=== PATIENT | female | born 1945 | race Caucasian/White ===

== ENCOUNTER 2018-12-21 08:47 | Inpatient (IN) | payer MEDICARE, OTHER ==
[~2018-12-21] VITALS: Ht 172.7 cm; Wt 103.1 kg
[2018-12-21] VITALS (8 sets, daily range): BP systolic 129–162; BP diastolic 48–80
--- NOTE | ~2018-12-21 | PR ---
[place], [place] PROGRESS NOTE [id number] UNIT #: [id number] ROOM: 522 DOCTOR: OPAL GUAMAN BIRTHDATE: [birth year] DOS: 12/24/2018 PULMONARY PROGRESS NOTE SUBJECTIVE: The patient remains in the hospital, noted comfortable this morning, assessed, using oxygen supplementation via nasal cannula. Denies symptoms of fever or chills. Denies symptoms of coughing or any sputum expectoration. OBJECTIVE: GENERAL: This morning was assessed as the patient is comfortably resting on the bed. VITAL SIGNS: Earlier recorded by the nursing staff; blood pressure 148/54, heart rate 84, respirations 16, normal temperature, pulse oxygen saturation recorded at 94% saturation on 2 liters nasal cannula. HEENT: Shows head was atraumatic. Eyes nonicterus. NECK: Supple. CARDIOVASCULAR: S1, S2 was audible. LUNGS: Noted without any wheezing or crackles at the present time. ABDOMEN: Soft, nontender, bowel sounds present. EXTREMITIES: No acute change. LABORATORY DATA: CMP this morning; BUN 35, creatinine 1.93, PTT was noted therapeutic. CBC: White blood cell count was normal, hemoglobin 8.9, platelets 216,000. IMPRESSION: 1. The patient with acute hypoxic respiratory failure, etiology cannot be clearly determined and diagnosis with pulmonary embolism was considered at this time and remains as a working diagnosis. 2. Bronchospasm noted on admission, currently noted to clear chest. PLAN OF MANAGEMENT: We will need home oxygen. The patient does desaturate on room air. She should continue anticoagulation with Coumadin at this time for 3 months minimally for suspected diagnosis of pulmonary embolism, which cannot be completely excluded unless the patient had a CT of the chest done to exclude the diagnosis appropriately. Novel anticoagulant will not be used due to her history of chronic kidney disease. She was advised to continue her medications for COPD and other medical diagnoses. She lives in [place], is here to visit family members and will be traveling back to [place]. The assessment and management of discharge planning was discussed with Dr. Pancho Smith. Dr. OPAL GUAMAN, [place], [place] PROGRESS NOTE NAME: CAMELIA CASEY UNIT #: [id number] ROOM: 522 DOCTOR: OPAL GUAMAN BIRTHDATE: [birth year] ZOHREH MD POPEYE CM:JAMES [id number] OPAL GUAMAN 12/25/18 0638 interface
--- NOTE | ~2018-12-21 | PR ---
[place], [place] PROGRESS NOTE NAME: CAMELIA CASEY UNIT #: [id number] ROOM: 522 DOCTOR: POPEYE SANCHES MD,ZOHREH BIRTHDATE: [birth year] DOS: 12/23/2018 PULMONARY PROGRESS NOTE SUBJECTIVE: The patient remains in the hospital, noted comfortable this morning assessed, using oxygen supplementation nasal cannula. Denies symptoms of fever or chills. Denies symptoms of coughing or any sputum expectoration. OBJECTIVE: GENERAL: This morning was assessed as the patient is comfortably resting on the bed. VITAL SIGNS: Earlier recorded by the nursing staff, blood pressure 162/76, heart rate 98, respirations 18, normal temperature. Pulse oxygen saturation recorded as 97% on 2 liters nasal cannula. HEENT: Examination shows head was atraumatic. Eyes nonicterus. NECK: Supple. CARDIOVASCULAR: S1, S2 is audible. LUNGS: Noted without any wheezing or crackles at the present time. ABDOMEN: Soft, nontender. Bowel sounds present. EXTREMITIES: No acute change. LABORATORY DATA: CMP this morning, BUN 36, creatinine 2.08. PTT was noted therapeutic. CBC, WBC count normal. Hemoglobin 8.7. IMPRESSION: 1. The patient with acute hypoxic respiratory failure, etiology cannot be clearly determined and diagnosis with pulmonary embolism was considered at this time, remains as a working diagnosis. 2. Bronchospasm, which was noted on admission by Dr. Pancho Smith was assessed on day of admission, starting on the steroids, but they were discontinued yesterday. Currently, noted clear chest. PLAN OF MANAGEMENT: Assessed home oxygen. The patient does desaturate noted still hypoxia. She should be continued anticoagulation at this time for minimal 3-month for suspected diagnosis of pulmonary embolism cannot be completely excluded unless the patient had a CT of the chest done to exclude the diagnosis appropriately. She was advised to continue her medication of COPD and other treatment and plan of management. She does live in [place] visiting family members will be traveling back to [place] may be needing oxygen supplementation if that becomes necessary. The assessment and management of discharge planning was discussed with Dr. Pancho Smith. [place], [place] PROGRESS NOTE NAME: CAMELIA CASEY UNIT #: [id number] ROOM: 522 DOCTOR: ZOHREH SOLO MD BIRTHDATE: [birth year] ZOHREH NYE MD CM:PNTRANS [id number] ZOHREH SANCHES MD 12/23/18 1456 interface
--- NOTE | ~2018-12-21 | PR ---
[place], [place] PROGRESS NOTE NAME: CAMELIA CASEY [facility] #: [id number] UNIT #: [id number] ROOM: 522 DOCTOR: TATIANNA IYER DO BIRTHDATE: [birth year] DOS: 12/23/2018 RENAL PROGRESS NOTE SUBJECTIVE: The patient offers no complaints today, states she is feeling quite well. Denies orthopnea, PND or dyspnea, chest pain, palpitations, presyncope or weakness. States she is voiding well. PHYSICAL EXAMINATION: VITAL SIGNS: Blood pressure is 125/84, pulse is 70, respirations 18, temperature is 97.8 degrees Fahrenheit. GENERAL APPEARANCE: A well-appearing female, awake, alert, oriented x 3, in no apparent distress. HEENT: Conjunctivae are pink and moist. Oral mucosa pink and moist. NECK: There is no JVD appreciated. LUNGS: Clear to auscultation and percussion. HEART: Regular without S3 or rub. Murmur is not appreciated. ABDOMEN: Soft, positive bowel sounds x 4. EXTREMITIES: No clubbing, cyanosis. There is no edema noted. Pulses are +2 bilateral radial. SKIN: Warm and dry. LABORATORY DATA: From today, WBCs are 5.7, hemoglobin of 8.7, hematocrit 29.7, platelets are 198,000. Sodium is 144, potassium 4.9, chloride 113, CO2 of 23, BUN 37, creatinine 2.08, glucose is 97, phosphorus is 2.4, magnesium 1.8, calcium of 8.2, albumin was 2.8, corrected calcium is 9.2, total protein is 6.1, ALT is 11, AST is 15, alkaline phosphatase is 76. ASSESSMENT AND PLAN: 1. Acute kidney injury on chronic kidney disease. Baseline creatinine is unclear, but her renal function has improved since admission, may have been a component of volume depletion contributing to her presentation of presyncope, weakness and acute kidney injury. 2. Hypertension. Blood pressure is under satisfactory control. 3. Anemia. Hemoglobin and hematocrit is diminished from admission with a hemoglobin of 9.7 noted at that time, but changed from yesterday. 4. Presyncope. Evaluation is in progress. Echocardiogram is pending. 5. Hypoxemia, being evaluated by Pulmonary Medicine. The patient did have a negative VQ scan and negative lower extremity Dopplers, echocardiogram is pending. We will see if there is any evidence of RV strain suggestive of a pulmonary embolism but for the moment, ongoing anticoagulation is being recommended by Pulmonary Medicine. RECOMMENDATIONS: No change in current management. Await the pending studies. Follow intake and output as well as renal function and electrolytes closely. Thank you for allowing us to participate in the care of the patient. [place], [place] PROGRESS NOTE NAME: CAMELIA CASEY UNIT #: [id number] ROOM: 522 DOCTOR: TATIANNA IYER DO BIRTHDATE: [birth year] TATIANNA IYER DO CM:JAMES [id number] TATIANNA IYER DO 12/24/18 1240 interface
--- NOTE | ~2018-12-21 | PR ---
[place], [place] PROGRESS NOTE NAME: CAMELIA CASEY UNIT #: [id number] ROOM: 522 DOCTOR: ZOHREH SOLO MD BIRTHDATE: [birth year] DOS: 12/24/2018 PULMONARY PROGRESS NOTE SUBJECTIVE: The patient is independently seen and examined in [id number] encounter, history was confirmed. Physical examination performed. The lab reviewed. Assessment and management of the patient personally made. The note done by the biomedical equipment tech approved as well. The patient was currently noted without any acute symptoms of shortness of breath. Continue oxygen supplementation. She was assessed yesterday with a 6-minute walk test for need of oxygen supplementation. The patient seemed to have hypoxia. The patient is requiring the oxygen supplementation. Case was discussed with Dr. Pancho Smith yesterday. The patient was continued on oxygen supplementation and also continuation of anticoagulation as well. PHYSICAL EXAMINATION: GENERAL: No distress noted. The patient is comfortably resting, using oxygen supplementation at 2 liters nasal cannula. HEENT: Head was atraumatic. Eyes nonicterus. NECK: Supple. CARDIOVASCULAR SYSTEM: S1, S2 audible. LUNGS: Noted clear to auscultation bilaterally. ABDOMEN: Soft, nontender. Bowel sounds present. EXTREMITIES: The patient was noted without any acute edema. MUSCULOSKELETAL: The patient was noted without any acute deformities. IMPRESSION: 1. The patient with a stable respiratory status noted at this time. The PTT was noted therapeutic on this morning of assessment. 2. Acute hypoxic respiratory failure, diagnosis of pulmonary embolism cannot be excluded. 3. History of chronic kidney disease. PLAN OF MANAGEMENT: No changes in plan of management at this time. Continue the patient's current therapy as in progress. Discharge planning by Dr. Pancho Smith. From pulmonary standpoint, the patient could be discharged home on oxygen supplementation. [place], [place] PROGRESS NOTE NAME: CAMELIA CASEY UNIT #: [id number] ROOM: 522 DOCTOR: ZOHREH SOLO MD BIRTHDATE: [birth year] ZOHREH NYE MD CM:JAMES [id number] ZOHREH SANCHES MD 12/25/18 0039 interface
--- NOTE | ~2018-12-21 | CON ---
[place], [place] REPORT OF CONSULTATION NAME: CAMELIA CASEY [facility] #: [id number] UNIT #: [id number] ROOM: 522 DOCTOR: ZOHREH SOLO MD BIRTHDATE: [birth year] DOS: 12/22/2018 PULMONARY CONSULTATION, EVALUATION AND MANAGEMENT CONSULTATION REQUESTED BY: Hospitalist service. REASON FOR CONSULTATION: For the assessment of acute hypoxic respiratory failure. HISTORY OF PRESENT ILLNESS: This is a 73-year-old white female patient who lives in [place]. The patient has been admitted to the hospital. The patient has been noted to fall at home. She has been assessed in the hospital for further care. She has reported oxygen desaturation at home with pulse oxygen saturation recorded about 85% at rest on room air. The patient was noted with history of chronic cough with sputum expectoration. She has been assessed and managed by the merchandise marker as she lives in [place]. The patient stated that she has been reported bilateral pulmonary nodules 4 and 7 mm, one in each lung with the previous, as stated, ultrasound of the chest, but I believe it would be the CT scan of the chest, as the patient was not sure about that. The family members have been present in the room with the patient. The patient does report symptoms of shortness of breath that occurs with exertion, but there was no acute worsening stating. There were no symptoms of chest pain or hemoptysis stated by the patient. She denies symptoms of active wheezing. The patient also stated that she has been diagnosed with obstructive sleep apnea disorder and was treated for that with the CPAP and oxygen with that. REVIEW OF SYSTEMS: CONSTITUTIONAL: Fatigue and tiredness reported. Denies symptoms of fever or chills. EYES: Denies any burning, redness, or tenderness. EARS, NOSE, THROAT SYMPTOMS: Denies sore throat, hoarseness, otalgia, postnasal drainage, or epistaxis. CARDIOVASCULAR: Denies angina pain. No edema in the lower extremities. GASTROINTESTINAL: Reported abdominal pain intermittently. Denies symptoms of hematemesis, melena, or hematochezia was reported. SKIN: Denies abnormal lesions or rashes. CENTRAL NERVOUS SYSTEM: History of recurrent fall reported possibly related to knee problem or others, but again history was not clearly known or stated by the patient. Remaining systems were reviewed. They were noted all negative. PAST MEDICAL HISTORY: 1. History of chronic kidney disease stage 4. 2. History of deep venous thrombosis of the lower extremity. 3. General anxiety disorder. 4. Hyperlipidemia. 5. Essential hypertension. 6. Depression. 7. History of pulmonary nodules. [place], [place] REPORT OF CONSULTATION NAME: CAMELIA CASEY UNIT #: [id number] ROOM: 522 DOCTOR: ZOHREH SOLO MD BIRTHDATE: [birth year] 8. Obstructive sleep apnea disorder. PAST SURGICAL HISTORY: Reported several that includes: 1. Appendectomy. 2. Intervertebral disk disease removal, lower back surgery. 3. Cataract extraction lens implantation bilaterally. 4. Bilateral total knee replacement. 5. Cholecystectomy. 6. Tubal ligation. 7. Dialysis catheter insertion. SOCIAL HISTORY: The patient is currently , has 2 children. She has been noted with tobacco use, started as a teenager 2 or 3 packs of cigarettes per day, which was discontinued in 1988. Denies history of alcohol use or illicit drug use. FAMILY HISTORY: The patient's father at age 52, from complication of myocardial infarction. Mother at 86 years old, from complication related to myocardial infarction as well. HOME MEDICATIONS: Listed as Norvasc, Lipitor, calcitriol, Coreg, fluoxetine, lorazepam and ranitidine. Medications administered currently were noted as, gabapentin, Solu-Medrol 40 mg b.i.d., aspirin, fluoxetine, amlodipine, calcitriol, Coreg, famotidine, Lipitor, heparin intravenous drip, DuoNeb, lorazepam, and others. ALLERGIES: No known drug allergies. PHYSICAL EXAMINATION: GENERAL: This is a 73-year-old female currently noted awake, alert, using oxygen supplement nasal cannula at rest. Height of 5 feet 10 inches, weight of 227, BUN 34.7. VITAL SIGNS: Temperature 99.6 degrees Fahrenheit on admission noted as normal temperature. Otherwise, respiratory rate ranges between 16-22, heart rate of 84-87, blood pressure 150/68-131/70. Pulse oxygen saturation recorded on 2 liters nasal cannula 93% saturation, at rest on room air 82% saturation. HEENT: Head is atraumatic. Eyes, nonicterus. NECK: Supple. CARDIOVASCULAR: S1, S2 audible. LUNGS: Noted decreased breath sounds with occasional crackles, no wheezing. ABDOMEN: Soft, nontender. Bowel sounds present. EXTREMITIES: Without acute edema. MUSCULOSKELETAL: Without acute deformities. CENTRAL NERVOUS SYSTEM: Cranial nerves 2-12 intact. LABORATORY DATA: CBC that was done on 12/21/2018, the lab reviewed, WBC count 5.3, hemoglobin 9.7, platelet count normal, yesterday. PT/PTT yesterday noted as normal study. The lactic acid yesterday normal at 1.0. CMP, BUN 41, creatinine 2.6, glucose 113 for this patient with troponin minimally elevated at 0.407, second troponin of 0.790 also reported, and troponin third set noted max [place], [place] REPORT OF CONSULTATION NAME: CAMELIA CASEY UNIT #: [id number] ROOM: 522 DOCTOR: AAKASH SOLO MDM BIRTHDATE: [birth year] troponin 0.99. The PTT noted at 115 on 12/21/2018. CBC that was done on 12/22/2018, WBC count 5.1, hemoglobin 8.9, platelet count was noted as normal at 172. CMP this morning, BUN 34, creatinine 2.34. BUN and creatinine otherwise remains normal. Albumin 2.7. Urinalysis this morning was noted with nitrites positive, 3+ leukocyte esterase, and 4+ bacteria. PTT repeated later in the afternoon today is 47.8. Review of the radiology data was also performed. DIAGNOSTIC STUDIES: Chest x-ray that was done on 12/21/2018 does not appear to have an acute pulmonary infiltration. X-rays of the hip was also done, noted as normal x-ray of the hip and pelvic area. CT scan of the head that was done on 12/21/2018 was noted without any acute abnormalities or intracranial process. The spine x-ray of the cervical spine was also noted negative. The patient has a CT scan of the abdomen and pelvis, which was done on this admission as well. Evidence of [id number] colitis reported extending from cecum to the splenic flexure. The lungs are noted without any acute visible pulmonary infiltration. IMPRESSION: 1. The patient who has been currently admitted to the hospital with acute hypoxic respiratory failure with possible consideration still for pulmonary embolism cannot be excluded in spite of a negative V/Q scan. There was no evidence of wheezing or acute exacerbation of chronic obstructive pulmonary disease. 2. The patient reported history of pulmonary nodule also stated, which were not seen on the current CT scan of the chest, previously identified as subcentimeter pulmonary nodules. 3. The patient with current colitis noted in the abdomen. 4. Chronic kidney disease may be related to the intravascular volume depletion with current colitis. 5. History of suspected chronic obstructive pulmonary disease, does not seem to have an acute exacerbation. 6. History of essential hypertension. 7. History of recurrent fall, exact etiology was unclear to me. 8. Sleep apnea disorder with nocturnal hypoxia, treated with the CPAP and oxygen supplementation per the patient and family members. PLAN OF MANAGEMENT: Titrate oxygen supplementation, maintain pulse ox 92% or greater because of elevation in troponin. The patient had been receiving the intravenous heparin per protocol, the patient noted with therapeutic PTT. The patient would be advised to continue anticoagulation at least for 3 months so the diagnosis of pulmonary embolus can be excluded. Unfortunately, for this patient, she could not get the CT of the chest, which should be considered as the gold standard test at this time to exclude pulmonary embolism because of the elevation of creatinine and history of chronic kidney disease. Other therapy, plan and management, and additional treatment changes will be suggested based on the progression of the illness. Supportive care. The patient already seen by the Nephrology services, Cardiology services, follow the recommendations of the assessment and management accordingly. The patient may require consultation with either Surgery or GI for assessment of recurrent abnormality stated on the colon if not done so. Solu-Medrol will be discontinued based on my current [place], [place] REPORT OF CONSULTATION NAME: [facility]: [id number] UNIT #: [id number] ROOM: 522 DOCTOR: AAKASH SOLO MDM BIRTHDATE: [birth year] assessment since the patient does not have any finding consistent with acute exacerbation of COPD. She has been noted chronic cough with sputum expectoration, which remains unchanged per the patient and family members. Certainly, the sputum for Gram stain culture will be ordered to exclude any evidence of acute bronchitis that could be treated if necessary with any additional antibiotics. The patient may require the oxygen assessment prior to the discharge. She was visiting and living in [place] and once the patient is discharged, certainly she needs to be reassessed by the other merchandise marker for continued management of the known medical illnesses. She could certainly bring her CPAP from the home to be used with oxygen supplementation for the long-term management of sleep apnea disorder noted in the history. ZOHREH NYE MD CM:CONSTR:REPORT OF CONSULTATION 1701 12/31/18 1022 interface
--- NOTE | ~2018-12-21 | CON ---
[place], [place] REPORT OF CONSULTATION NAME: CAMELIA CASEY UNIT #: [id number] ROOM: 522 DOCTOR: SYDNEE LOMBARDO MD BIRTHDATE: [birth year] DOS: 12/21/2018 NEPHROLOGY CONSULTATION REASON FOR CONSULTATION: Chronic kidney disease. HISTORY OF PRESENT ILLNESS: This is a 73-year-old female with past medical history of known chronic kidney disease, hypertension. She apparently was admitted following a fall. The patient is visiting family from [place]. Apparently, she has had some issues with nausea and constipation for about a week and took a number of laxatives earlier and started to have loose stools. She did feel dizzy and uneasy on her feet. She went to the bathroom and then fell to the floor. She denied hitting her head or losing consciousness. She was somewhat hypoxic when she arrived. This did improve with oxygen. She had imaging studies, which were unrevealing. She had mildly elevated troponin. Creatinine was noted to be 2.6. The patient does feel better and hopes to go home tomorrow. She does have known chronic kidney disease. She tells me she follows with a linen room worker chronically. She was unable to tell me her creatinine baseline; however, did state she knows she was stage 4 CKD. She denies dysuria or hematuria. She denies current shortness of breath, nausea, vomiting, fevers or chills. ALLERGIES: No known drug allergies. MEDICATIONS: Reviewed in the chart. PAST MEDICAL HISTORY: 1. Known chronic kidney disease as stated above. 2. Hypertension. 3. Secondary hyperparathyroidism, on Rocaltrol. 4. Hyperlipidemia. 5. GERD. 6. Anxiety. 7. Osteoarthritis. 8. History of appendectomy. 9. Back surgery 10. Bilateral cataract extraction. 11. Bilateral knee replacement. 12. Cholecystectomy. 13. Tubal ligation. 14. Previous dialysis catheter placement and removal. Details unclear. 15. Questionable chronic obstructive pulmonary disease on home O2 at night. 16. Hemorrhoids. FAMILY HISTORY: No reported history of chronic kidney disease, otherwise noncontributory. SOCIAL HISTORY: No tobacco, alcohol or illicit drugs. She has previous history [place], [place] REPORT OF CONSULTATION NAME: CAMELIA CASEY UNIT #: [id number] ROOM: 522 DOCTOR: GRUPO BURNETTESYDNEE Geovanni BIRTHDATE: [birth year] of tobacco abuse. REVIEW OF SYSTEMS: As per HPI, otherwise a 10-point review of systems was reviewed and was negative. PHYSICAL EXAMINATION: VITAL SIGNS: Temperature afebrile, pulse 82, respiration rate 17, blood pressure 148/67. GENERAL: She is awake, alert, comfortable, sitting in bed, in no acute distress. HEENT: Shows no JVD. Sclerae are anicteric. Mucous membranes are moist. Pharynx is clear. NECK: Supple. Trachea is midline. There is no neck lymphadenopathy or thyromegaly. LUNGS: Diminished breath sounds. No wheezes. No tactile fremitus. She is not using accessory muscles of respiration. HEART: S1, S2. No rub, thrill or gallop. ABDOMEN: Soft, nontender. There is no organomegaly or rigidity, rebound or guarding. There is no CVA tenderness. EXTREMITIES: 1+ edema. There is no lower extremity lymphadenopathy. Distal pulses are present. SKIN: Showed no overt rash. There is no petechia or purpura. Skin temperature is warm. NEUROLOGIC: Awake, alert and following commands. Cranial nerves are intact. DIAGNOSTIC DATA: Bilateral lower extremity ultrasound negative for DVT. CT abdomen and pelvis without contrast revealed small kidneys, no hydronephrosis, no acute process in the lungs. Moderately severe colitis. CT of the head showed no acute findings. BUN is 41, creatinine 2.6, sodium 142, potassium 4.8, carbon dioxide 23, calcium 8.3, magnesium 2.4, hemoglobin 9.7, white count of 5.3 and platelets 204. IMPRESSION: 1. Stage 4 chronic kidney disease. The patient's creatinine likely is near baseline. She likely has underlying nephrosclerosis, although details are not clear. 2. Status post fall, questionable presyncope. 3. Hypertension. 4. Anemia. 5. Mild elevated troponin. PLAN: 1. Continue ongoing supportive care. 2. Dose meds for current creatinine clearance. 3. Avoid nephrotoxic agents. 4. Continue home medications. 5. Avoid contrast studies. 6. The patient is stable for discharge from renal standpoint. [place], [place] REPORT OF CONSULTATION NAME: CAMELIA CASEY UNIT #: [id number] ROOM: 522 DOCTOR: GRUPO BURNETTE,SYDNEE Galarza BIRTHDATE: [birth year] Thank you for this consultation. We will follow with you. SYDNEE LOMBARDO MD CM:CONSTR:REPORT OF CONSULTATION 1657 12/22/18 0300 interface
--- NOTE | ~2018-12-21 | EKG ---
[place], [place] ELECTROCARDIOGRAM REPORT NAME: CAMELIA CASEY UNIT #: [id number] ROOM: 522 DOCTOR: LESLIE DRAFT REPORT BIRTHDATE: [birth year] [facility] Test Date: 2018-12-21 Test Time: 14:52:37 Pat Name: CAMELIA CASEY Department: Room: 522 Gender: F Senior Air Director: Ethel Yarbrough : 1945 Requested By: KIMBER CHILD Order Number: [id number] Reading MD: Cal Mueller MD Measurements Intervals [place] Rate: 86 P: 29 VA: 208 QRS: 31 QRSD: 93 T: 12 QT: 401 QTc: 480 Interpretive Statements Sinus rhythm Borderline T abnormalities, anterior leads Electronically Signed On 12-22-2018 11:41:21 PDT by Cal Mueller MD CM:EKGRPT:ELECTROCARDIOGRAM REPORT [id number] [id number] KIMBER NELSON DRAFT REPORT KIMBER CHILD MD
--- NOTE | ~2018-12-21 | EKG ---
[place], [place] ELECTROCARDIOGRAM REPORT NAME: CAMELIA CASEY UNIT #: [id number] ROOM: 522 DOCTOR: LESLIE DRAFT REPORT BIRTHDATE: [birth year] [facility] Test Date: 2018-12-21 Test Time: 11:53:05 Pat Name: CAMELIA CASEY Department: Room: 522 Gender: F Cinema Operator: : 1945 Requested By: KIMBER CHILD Order Number: [id number] Reading MD: Cal Mueller MD Measurements Intervals [place] Rate: 85 P: 24 [place]: 208 QRS: 24 QRSD: 89 T: 24 QT: 368 QTc: 438 Interpretive Statements Sinus rhythm No previous ECG available for comparison Electronically Signed On 12-22-2018 11:41:10 PDT by Cal Mueller MD CM:EKGRPT:ELECTROCARDIOGRAM REPORT 1153 1141 KIMBER NELSON DRAFT REPORT KIMBER CHILD MD
--- NOTE | ~2018-12-21 | EKG ---
[place], [place] ELECTROCARDIOGRAM REPORT NAME: CAMELIA CASEY UNIT #: [id number] ROOM: 522 DOCTOR: LESLIE DRAFT REPORT BIRTHDATE: [birth year] [facility] Test Date: 2018-12-21 Test Time: 09:00:33 Pat Name: CAMELIA CASEY Department: Room: 522 Gender: F Program Therapist: : 1945 Requested By: KIMBER CHILD Order Number: [id number] Reading MD: Cal Mueller MD Measurements Intervals [place] Rate: 85 P: 41 [place]: 197 QRS: 21 QRSD: 90 T: 15 QT: 375 QTc: 446 Interpretive Statements Sinus rhythm Baseline wander in lead(s) V1 Electronically Signed On 12-22-2018 11:41:05 PDT by Cal Mueller MD CM:EKGRPT:ELECTROCARDIOGRAM REPORT 0900 1141 KIMBER NELSON DRAFT REPORT KIMBER CHILD MD
[2018-12-21 09:15] LABS: BASO % 0.4 % (0.0-1.0); EOS # 0.1 10*3/uL (0.0-0.4); EOS % 2.1 % (1.0-4.0); HEMATOCRIT 34.7 % (37.0-47.0); HEMOGLOBIN 9.7 g/dl (12.0-16.0); LYMPH # 0.5 10*3/uL (1.3-4.4); LYMPH % 8.8 % (27.0-41.0); MEAN CELL VOLUME 103.3 fl (81.0-99.0); MEAN CORPUSCULAR HGB 28.9 pg (27.0-31.0); MEAN PLATELET VOLUME 9.2 fl (9.6-12.3); MONO # 0.7 10*3/uL (0.1-1.0); MONO % 12.7 % (3.0-9.0); NEUT % 75.3 % (47.0-73.0); PLATELET COUNT AUTOMATED 204 10*3/uL (130-400); RED BLOOD COUNT 3.36 10*6/uL (4.10-5.10); RED CELL DISTRI WIDTH 14.6 % (0-14.5); WHITE BLOOD COUNT 5.3 10*3/uL (4.8-10.8)
[2018-12-21 09:27] LABS: ACT PARTIAL THROMBO TIME 23.9 SECONDS (20.0-32.1); INTERNATIONAL NORM RATIO 0.9 (2.0-3.5)
[2018-12-21 09:33] LABS: ALBUMIN 2.9 gm/dl (3.1-4.5); CREATININE 2.63 mg/dL (0.55-1.02); POTASSIUM 4.8 mmol/L (3.5-5.1); TOTAL PROTEIN 6.7 gm/dL (6.4-8.2)
[2018-12-21 09:41] LABS: TROPONIN I 0.407 ng/ml (<0.045)
--- NOTE | 2018-12-21 10:30 | NUR ---
UNABLE TO TAKE PT UPSTAIRS FOR DR ELIAS IN ROOM ASSESSING PT.
--- NOTE | 2018-12-21 10:55 | NUR ---
[facility] CALLED AND WANTS TO TAKE PT TO CT BEFORE GOING UPSTAIRS.
--- NOTE | 2018-12-21 12:07 | NUR ---
REPORT RECEIVED FROM ER NURSE JEFFREY. PATIENT BEING TRANSPORTED TO ULTRASOUND THEN TO THE FLOOR.
--- NOTE | 2018-12-21 12:11 | NUR ---
US CALLED AND WANTED TO TAKE PT BEFORE GOING UPSTAIRS. EXPLAINED TO US TECH PT NEEDS TO GO UPSTAIRS.
--- NOTE | 2018-12-21 12:12 | NUR ---
CALLED RN ON FLOOR AND EXPLAINED SITUATION REPORT GIVEN TO RN AND TRIED TO CALL US TO COME GET PT AND WHEN DONE TAKE PT TO FLOOR BUT NO ANSWER.
--- NOTE | 2018-12-21 12:15 | NUR ---
US CALLED AND WILL TAKE PT TO US AND THEN UPSTAIRS TO HER ROOM.
--- NOTE | 2018-12-21 12:23 | NUR ---
US HERE FOR PT.
--- NOTE | 2018-12-21 12:27 | NUR ---
CRITICAL TROPONIN 0.[address] ANSHU ELIAS. NO NEW ORDERS AT THIS TIME.
--- NOTE | 2018-12-21 13:40 | NUR ---
CALLED [facility] (PATIENT'S HOME [facility]). THEY WILL FAX PATIENT'S CURRENT MEDICATION LIST.
--- NOTE | 2018-12-21 13:45 | NUR ---
DR ALLEN CALLED WITH NEW CONSULT.
[2018-12-21] MEDS ORDERED: LATANOPROST2.5 ML OP (14:35)
[2018-12-21] MEDS ORDERED: CALCITRIOL0.25 MCG PO (14:36)
[2018-12-21] MEDS ORDERED: ATORVASTATIN CA10 M1 PO (14:36)
[2018-12-21] MEDS ORDERED: LORAZEPAM0.5 MG PO (14:37)
[2018-12-21] MEDS ORDERED: GOOD NEIGHBOR150 MG PO (14:37)
[2018-12-21] MEDS ORDERED: AMLODIPINE BESY10 MG PO (14:38)
[2018-12-21] MEDS ORDERED: FLUOXETINE HCL10 MG PO (14:38)
[2018-12-21] MEDS ORDERED: DEXTROAMP SAC-AM5 MG PO (14:39)
[2018-12-21] MEDS ORDERED: TYLENOL WITH C1 EACH PO (14:39)
[2018-12-21] MEDS ORDERED: CARVEDILOL12.5 MG PO (14:40)
--- NOTE | 2018-12-21 14:41 | NUR ---
DR ELIAS AWARE THAT HOME MEDICATIONS ARE UP TO DATE.
--- NOTE | 2018-12-21 15:15 | NUR ---
SPOKE WITH DR ALLEN ABOUT ELEVATED TROPONIN 0.999. NO NEW ORDERS AT THIS TIME.
--- NOTE | 2018-12-21 17:29 | NUR ---
IV started right antecubital with #20 angiocath after 0 attempts. The IV site was prepped with Chloraprep. Heparin lock attached. Flushed with Normal Saline. Secured and intact.
--- NOTE | 2018-12-21 19:30 | NUR ---
PT IS AWAKE AND SITTING UP IN BED AT THIS TIME. NO S/S OF DISTRESS NOTED. RESPS ARE EASY AND NONLABORED. SHE STATES THAT SHE FEELS OKAY AND IS NOT EXPERIENCING ANY PAIN. WILL CONTINUE TO MONITOR.
--- NOTE | 2018-12-21 20:14 | NUR ---
24 HR CHART CHECK COMPLETE.
[2018-12-22] VITALS: BP 131/70
[2018-12-22 06:46] LABS: BASO % 0.4 % (0.0-1.0); EOS # 0.3 10*3/uL (0.0-0.4); EOS % 6.3 % (1.0-4.0); HEMATOCRIT 31.2 % (37.0-47.0); HEMOGLOBIN 8.9 g/dl (12.0-16.0); LYMPH # 0.9 10*3/uL (1.3-4.4); LYMPH % 18.2 % (27.0-41.0); MEAN CELL VOLUME 102.3 fl (81.0-99.0); MEAN CORPUSCULAR HGB 29.2 pg (27.0-31.0); MEAN CORPUSCULAR HGB CONC 28.5 g/dl (33.0-37.0); MEAN PLATELET VOLUME 9.4 fl (9.6-12.3); MONO # 0.7 10*3/uL (0.1-1.0); MONO % 13.9 % (3.0-9.0); NEUT # 3.1 10*3/uL (2.3-7.9); NEUT % 60.8 % (47.0-73.0); PLATELET COUNT AUTOMATED 172 10*3/uL (130-400); RED BLOOD COUNT 3.05 10*6/uL (4.10-5.10); RED CELL DISTRI WIDTH 14.6 % (0-14.5); WHITE BLOOD COUNT 5.1 10*3/uL (4.8-10.8)
[2018-12-22 07:04] LABS: ALBUMIN 2.7 gm/dl (3.1-4.5); CREATININE 2.34 mg/dL (0.55-1.02); PHOSPHOROUS 3.4 mg/dL (2.5-4.9); POTASSIUM 4.5 mmol/L (3.5-5.1)
[2018-12-22 07:08] LABS: THYROID STIM HORMONE (HS) 0.78 uIU/ml (0.358-4.75)
[2018-12-22 07:50] LABS: VITAMIN D, 25-HYDROXY 28.6 ng/mL (30-100)
[2018-12-22 08:00] VITALS: BP 140/68; BP 165/93
[2018-12-22 08:00] LABS: BILIRUBIN NEGATIVE (NEGATIVE); BLOOD 1+ (NEGATIVE); CLARITY CLOUDY (CLEAR); COLOR YELLOW (YELLOW); GLUCOSE NEGATIVE (NEGATIVE); KETONE NEGATIVE (NEGATIVE); LEUKO ESTERASE 3+ (NEGATIVE); NITRITE POSITIVE (NEGATIVE); SPECIFIC GRAVITY 1.015 (1.005-1.030); UROBILINOGEN 0.2 E.U./dl (0.2-1.0)
[2018-12-22 08:07] LABS: BACTERIA 4+; WBC TNTC wbc/hpf (0-5)
--- NOTE | 2018-12-22 08:35 | NUR ---
DR ELIAS IN TO SEE PATIENT. TO REMAIN ON HEPARIN DRIP AT THIS TIME.
[2018-12-22 12:00] VITALS: BP 112/81
[2018-12-22] MEDS ORDERED: NEURONTIN300 MG PO (12:21)
[2018-12-22 16:00] VITALS: BP 175/59
[2018-12-22 20:00] VITALS: BP 166/60
--- NOTE | 2018-12-22 20:43 | NUR ---
IV SITE IN RAC APPEARS RED/SWOLLEN. SITE IS NOT PAINFUL PER PT. SITE FLUSHES EASILY WITH +BLOOD RETURN. IV HEPARIN INFUSING PER ORDER. EDUCATED PT ABOUT HEPARIN POLICY AND NEED FOR SECOND IV SITE. PT REFUSING TO ALLOW RN TO INITIATE A SECOND IV.
[2018-12-23] VITALS: BP 162/65
[2018-12-23 03:40] VITALS: BP 153/78
[2018-12-23 06:01] LABS: BASO % 0.2 % (0.0-1.0); EOS % 0.3 % (1.0-4.0); HEMATOCRIT 29.7 % (37.0-47.0); HEMOGLOBIN 8.7 g/dl (12.0-16.0); LYMPH # 0.6 10*3/uL (1.3-4.4); MEAN CORPUSCULAR HGB CONC 29.3 g/dl (33.0-37.0); MEAN PLATELET VOLUME 9.8 fl (9.6-12.3); MONO # 0.8 10*3/uL (0.1-1.0); MONO % 14.3 % (3.0-9.0); NEUT # 4.2 10*3/uL (2.3-7.9); NEUT % 73.9 % (47.0-73.0); PLATELET COUNT AUTOMATED 198 10*3/uL (130-400); RED CELL DISTRI WIDTH 14.5 % (0-14.5); WHITE BLOOD COUNT 5.7 10*3/uL (4.8-10.8)
[2018-12-23 06:34] LABS: ALBUMIN 2.8 gm/dl (3.1-4.5); CREATININE 2.08 mg/dL (0.55-1.02); PHOSPHOROUS 2.4 mg/dL (2.5-4.9); POTASSIUM 4.8 mmol/L (3.5-5.1); TOTAL PROTEIN 6.1 gm/dL (6.4-8.2)
--- NOTE | 2018-12-23 07:39 | NUR ---
PHYSICAL THERAPY Nursing screen received. PT orders also received. Thank you. Adela Farah,PT
[2018-12-23 08:20] VITALS: BP 162/76
--- NOTE | 2018-12-23 08:44 | NUR ---
Nursing screen received and Occupational Therapy referral received. Thank you. Molly Geronimo OTR/l
--- NOTE | 2018-12-23 11:20 | NUR ---
HOME O2 ASSESSMENT ROOM AIR AT REST: SPO2 88% HR 72 RR 24 BP 130/80 2L NC AT REST: SPO2 94% HR 74 RR 20 AMBULATION ON 2L: SPO2 92-95% HR 86-100 RECOVERY ON 2L: SPO2 94% HR 78 RR 20 BP 160/70 PT. REQUIRES 2L OXYGEN AT REST AND DURING AMBULATION TO KEEP SPO2 GREATER THAN OR EQUAL TO 88%. RN AWARE.
--- NOTE | 2018-12-23 11:49 | NUR ---
Patient not available for Occupational THerapy evaluation at this time, as she is getting a respiratory therapy treatment. Molly Geronimo OTR/l
--- NOTE | 2018-12-23 11:56 | NUR ---
PHYSICAL THERAPY Patient with respiratory therapy at this time. Adela Farah,PT
[2018-12-23 12:00] VITALS: BP 125/84
--- NOTE | 2018-12-23 14:00 | NUR ---
Nutritional Support Services Note: Pt was triggered for a nutritional consult for renal diet education. She states she's been educated on this before, so I had her explain to me what this entails and she was able to provide accurate information. She states she knows what to do, but doesn't because she doesn't want to "yet." Pt noncomplient at this time. Fredy Gamboa [employer] C[employer] Student
--- NOTE | 2018-12-23 14:25 | NUR ---
Policy Value Calculator in to talk to patient. Patient states lives at HOME with GRANDSON IN [place]. There are FEW steps in the home. Physician: NON STAFF PHYSICIAN Pharmacy: [facility] [place] Home health services: NONE Patient's level of ADLs: INDEPENDENT Patient has working utilities: YES DME: CPAP Follow-up physician's appointment after d/c: WILL MAKE WHEN SHE GETS BACK TO [place] Does patient want to access PORTAL?: NO Discharge plan PT LIVES AT HOME WITH HER GRANDSON IN [place]. ESPERANZA IS IN THE ROOM WITH PT AND STATES SHE IS CONCERNED ABOUT GETTING PT BACK HOME WITH OXYGEN. PT STATES SHE HAS OXYGEN AT HOME THEN SAYS IT IS A CPAP. PT DOES NOT HAVE OXYGEN HERE WITH HER BUT SHE NEEDS IT ALL THE TIME NOW. SPOKE WITH OMER IN RESPITORY AND HE IS WORKING ON IT. ESPERANZA ALSO VOICING CONCERNS ABOUT WHAT ANTI COAGULANT PT WILL BE DISCHARGED ON. EXPLAINED SHE NEEDED TO TALK WITH DOCTORS ABOUT THIS. STATES PT HAS DIALYSIS [place] IN [place] AND HAS NOT BEEN STARTED ON DIALYSIS YET SO SHE IS CONCERNED ABOUT WHAT SHE WILL GET. WILL CONTINUE TO FOLLOW. PT STATES SHE WILL BE GOING BACK TO HER SISTERS IN [place] UNTIL SHE GOES BACK HOME. WILL HAVE A RIDE. YECENIA HAM
[2018-12-23 16:00] VITALS: BP 145/48
--- NOTE | 2018-12-23 18:47 | NUR ---
STAT PTT 22.8; HEPARIN PROTOCOL INITIATED AT ORDERED RATE OF 18 UNITS/KG/HR OR 18.5ML/HR AFTER BOLUS OF 5000 UNITS PER POLICY, CHECKED BY 2 RN'S. NEXT PTT TO BE DRAWN AT 0045 PER PROTOCOL.
--- NOTE | 2018-12-23 19:56 | NUR ---
PT ASLEEP IN BED. NO S/S OF DISTRESS NOTED. O2 IN USE VIA 2L NC. HEPARIN GTT INFUSING PER ORDER. WILL MONITOR. CALL LIGHT IN REACH.
[2018-12-23 20:00] VITALS: BP 151/65
[2018-12-24] VITALS: BP 154/59
--- NOTE | 2018-12-24 01:23 | NUR ---
APTT 74.0. NO CHANGE PER HEPARIN PROTOCOL. RATE REMAINS AT 18 U/KG/HR = 18.5 ML/HR.
--- NOTE | 2018-12-24 05:51 | NUR ---
PT DENIES ANY NEEDS AT THIS TIME. WILL MONITOR. CALL LIGHT IN REACH.
[2018-12-24 06:45] LABS: BASO % 0.5 % (0.0-1.0); EOS # 0.4 10*3/uL (0.0-0.4); HEMATOCRIT 30.5 % (37.0-47.0); HEMOGLOBIN 8.9 g/dl (12.0-16.0); LYMPH # 1.2 10*3/uL (1.3-4.4); LYMPH % 19.8 % (27.0-41.0); MEAN CELL VOLUME 99.7 fl (81.0-99.0); MEAN CORPUSCULAR HGB 29.1 pg (27.0-31.0); MEAN CORPUSCULAR HGB CONC 29.2 g/dl (33.0-37.0); MEAN PLATELET VOLUME 10.1 fl (9.6-12.3); MONO # 0.8 10*3/uL (0.1-1.0); MONO % 12.6 % (3.0-9.0); NEUT # 3.6 10*3/uL (2.3-7.9); NEUT % 60.6 % (47.0-73.0); PLATELET COUNT AUTOMATED 216 10*3/uL (130-400); RED BLOOD COUNT 3.06 10*6/uL (4.10-5.10); RED CELL DISTRI WIDTH 14.9 % (0-14.5)
[2018-12-24 07:21] LABS: INTERNATIONAL NORM RATIO 0.9 (2.0-3.5)
[2018-12-24 07:25] LABS: ACT PARTIAL THROMBO TIME 82.8 SECONDS (20.0-32.1); POTASSIUM 4.8 mmol/L (3.5-5.1)
--- NOTE | 2018-12-24 07:30 | NUR ---
APTT 82.8. HEPARIN GTT STOPPED AT THIS TIME & PUT ON HOLD FOR ONE HOUR PER HEPARIN PROTOCOL. AM SHIFT RN NOTIFIED. AWARE THAT RATE WILL HAVE TO BE DECREASED BY 3 U/KG/HR (FROM 18 U/KG/HR TO 15 U/KG/HR) WHEN GTT IS RESTARTED AT 0830.
[2018-12-24 07:39] LABS: ALBUMIN 2.9 gm/dl (3.1-4.5); CREATININE 1.93 mg/dL (0.55-1.02); TOTAL PROTEIN 6.2 gm/dL (6.4-8.2)
[2018-12-24 08:05] VITALS: BP 130/72
--- NOTE | 2018-12-24 08:30 | NUR ---
PTT THIS MORNING 82.8. HEPARIN DRIP STOPPED X 1 HOUR AT 0730, RESTARTED AT THIS TIME AT REDUCED RATE OF 15 UNITS/KG/HR OR 15.5ML/HR, NEXT PTT TO BE DRAWN AT 1330 PER POLICY.
[2018-12-24 09:34] VITALS: BP 148/54
--- NOTE | 2018-12-24 11:14 | NUR ---
PHYSICAL THERAPY PAtient with respiratory at this time. Adela Farah,PT
[2018-12-24 12:00] VITALS: BP 149/57
[2018-12-24 12:02] VITALS: BP 112/58; BP 114/60
--- NOTE | 2018-12-24 12:32 | NUR ---
WILL CONTINUE TO FOLLOW AND HELP WITH DISCHARGE NEEDS. PT DENIES ANY AT THIS TIME.
--- NOTE | 2018-12-24 13:44 | NUR ---
Patient not available as she is receiving blood transfusion and with respiratory therapy. Molly Geronimo OTR/L
--- NOTE | 2018-12-24 13:45 | NUR ---
HOME O2 ASSESSMENT: PRE BP: 114/60, HR 75, RR 24, PULSE OX 90% ON ROOM AIR AT REST. AMBULATED PATIENT IN HALLWAY WITH ASSIST OF A WHEELED WALKER, PULSE OX 89%-91% ON ROOM AIR THROUGHOUT AMBULATION. POST BP: 150/65, HR 100, RR 24, PULSE OX 93% ON ROOM AIR AT REST. RN AND DOCTOR NOTIFIED.
--- NOTE | 2018-12-24 13:45 | NUR ---
PHYSICAL THERAPY PAtient with Lab and Respiratory at this time. Adela Farah,PT
--- NOTE | 2018-12-24 14:45 | NUR ---
APTT 51.5. NO CHANGE IN RATE OF HEPARIN DRIP, NEXT PTT TO BE DRAWN ON 12/25/18 AT 0530 PER POLICY.
--- NOTE | 2018-12-24 15:42 | NUR ---
PHYSICAL THERAPY PAtient reports she is discharged. Thank you for this referral. Adela Farah,PT
--- NOTE | 2018-12-24 15:46 | NUR ---
Occupational Therapy evaluation offered but patient reports that she is to be discharged "home" to stay with her friend today. No OT evaluation performed d/t discharge. Thank you. Kellie Geronimo OTR/L
[2018-12-24] MEDS ORDERED: CEFUROXIME AXE500 MG PO (15:54)
[2018-12-24] MEDS ORDERED: ELIQUIS5 M1 PO (15:54)
[2018-12-24 16:00] VITALS: BP 154/75
--- NOTE | 2018-12-24 17:38 | NUR ---
Discharge instructions reviewed with patient/family. Patient receptive and verbalizes understanding. Follow-up care arranged. Written instructions given to patient/family. YADIRA LUIS
--- NOTE | 2018-12-24 17:47 | NUR ---
PATIENT DISCHARGED TO FRONT LOBBY BY WHEELCHAIR, ACCOMPANIED BY [facility], FOR TRANSPORT HOME BY PRIVATE VEHICLE WITH FAMILY MEMBERS.
== END 2018-12-24 17:47 | disposition home or self-care (01) | DRG 682 ==
LOC: ED 08:47 → EDHOLD 10:37 → 5E 10:37
PROVIDERS: Emergency Medicine; Internal Medicine; ADMIT Emergency Medicine
DX: N17.0 Acute kidney failure with tubular necrosis (principal); I26.99 Other pulmonary embolism without acute cor pulmonale; J96.21 Acute and chronic respiratory failure with hypoxia; E44.0 Moderate protein-calorie malnutrition; J44.0 Chronic obstructive pulmonary disease with (acute) lower respiratory infection; N39.0 Urinary tract infection, site not specified; N17.9 Acute kidney failure, unspecified; N18.4 Chronic kidney disease, stage 4 (severe); N25.81 Secondary hyperparathyroidism of renal origin; E86.0 Dehydration; R55 Syncope and collapse; I12.9 Hypertensive chronic kidney disease with stage 1 through stage 4 chronic kidney disease, or unspecified chronic kidney disease; K59.00 Constipation, unspecified; R10.30 Lower abdominal pain, unspecified; E87.8 Other disorders of electrolyte and fluid balance, not elsewhere classified; E83.41 Hypermagnesemia; K52.9 Noninfective gastroenteritis and colitis, unspecified; G47.33 Obstructive sleep apnea (adult) (pediatric); K21.9 Gastro-esophageal reflux disease without esophagitis; G89.29 Other chronic pain; M19.90 Unspecified osteoarthritis, unspecified site; F41.1 Generalized anxiety disorder; M54.9 Dorsalgia, unspecified; F32.9 Major depressive disorder, single episode, unspecified; E66.9 Obesity, unspecified; Z96.653 Presence of artificial knee joint, bilateral; E78.5 Hyperlipidemia, unspecified; D53.9 Nutritional anemia, unspecified; R73.9 Hyperglycemia, unspecified; W18.30XA Fall on same level, unspecified, initial encounter; Y93.89 Activity, other specified; Y92.098 Other place in other non-institutional residence as the place of occurrence of the external cause; Y99.8 Other external cause status; Z99.81 Dependence on supplemental oxygen; Z90.49 Acquired absence of other specified parts of digestive tract; Z98.51 Tubal ligation status; Z98.42 Cataract extraction status, left eye; Z98.41 Cataract extraction status, right eye; Z87.891 Personal history of nicotine dependence; Z86.718 Personal history of other venous thrombosis and embolism; Z82.49 Family history of ischemic heart disease and other diseases of the circulatory system; Z79.899 Other long term (current) drug therapy; Z68.34 Body mass index [BMI] 34.0-34.9, adult